=== PATIENT | female | born 1970 | race Caucasian/White ===

== ENCOUNTER 2016-11-04 09:56 | Observation (INO) | payer SELFPAY ==
[~2016-11-04] VITALS: Ht 160 cm; Wt 160.8 kg
[2016-11-04 10:47] LABS: EOSINOPHIL (%) 0.4 % (0-5); EOSINOPHIL COUNT 0.1 K/uL (0-0.3); HEMATOCRIT 37.1 % (36.0-46.0); IMMATURE GRANULOCYTE (%) 0.6 % (0.0-0.7); IMMATURE GRANULOCYTE COUNT 0.1 K/uL; INSTRUMENT ABS NEUTROPHIL CT 11.4 K/uL; LYMPHOCYTE COUNT 0.4 K/uL (1.0-2.8); MCH 26.7 PG (29.0-34.0); MCHC 31.3 G/DL (30.0-36.0); MCV 85.3 FL (83-99); MEAN PLAT.VOLUME 9.6 uM^3 (9.5-12.4); MONOCYTE (%) 1.7 % (3-12); MONOCYTE COUNT 0.2 K/uL (0-0.8); NEUTROPHIL (%) 93.7 % (45-76); NEUTROPHIL COUNT 11.4 K/uL (1.8-6.4); PLATELET COUNT 301 K/uL (156-360); RBC DIS.WIDTH-CV 14.6 % (11.8-14.6); RED BLOOD COUNT 4.35 M/uL (3.80-5.20); WHITE BLOOD COUNT 12.1 K/uL (4.1-10.2)
[2016-11-04 10:55] LABS: CHLORIDE 106 mEq/L (99-109); POTASSIUM 3.6 mEq/L (3.7-5.4); SODIUM 143 mEq/L (136-147)
[2016-11-04 10:57] LABS: GLUCOSE 219 mg/dL (70-99)
[2016-11-04 10:59] LABS: ANION GAP 13 MEQ/L (2-14); TOTAL BILIRUBIN 0.4 mg/dL (0.0-1.0)
[2016-11-04 11:05] LABS: LIPASE 97 U/L (1.0-51.0)
[2016-11-04 11:06] LABS: GFR ESTIMATE (CALCULATED) > 59 mL/min/; UREA NITROGEN (BUN) 15 mg/dL (9-23)
[2016-11-04 11:08] LABS: ALKALINE PHOSPHATASE 50 IU/L (3-129)
[2016-11-04 11:34] LABS: POINT-OF-CARE METER ID UU14100415
[2016-11-04 11:38] LABS: QUANTITATIVE HCG < 4.0 MIU/ML
[2016-11-04 11:53] LABS: ADD MIUA? NO; BILIRUBIN NEGATIVE; BLOOD NEGATIVE; COLOR YELLOW ((YELLOW)); GLUCOSE (STRIP) >=500; KETONES 5; LEUKOCYTES NEGATIVE; NITRITE NEGATIVE; PROTEIN (STRIP) NEGATIVE; SPECIFIC GRAVITY 1.017 (1.000-1.030); UCUL ADDED? NO; UROBILINOGEN 0.2 MG/DL (0.2-1.0)
[2016-11-04] MEDS ORDERED: PERCOCET 5/31 TABLET PO (15:09)
[2016-11-04] MEDS ORDERED: ZOFRAN4 MG PO (15:09)
[2016-11-04] MEDS ORDERED: MOTRIN600 MG PO (15:09)
[2016-11-04] MEDS ORDERED: VENTOLIN HFA18 GM IH (19:05)
[2016-11-04] MEDS ORDERED: GLIMEPIRIDE4 MG PO (19:06)
[2016-11-04] MEDS ORDERED: COREG25 M1 PO (19:06)
[2016-11-04] MEDS ORDERED: METFORMIN HCL1000 MG PO (19:06)
[2016-11-04] MEDS ORDERED: SERTRALINE HCL100 MG PO (19:06)
[2016-11-04] MEDS ORDERED: VICTOZA0.6 MG/0.1 SC (19:06)
[2016-11-04] MEDS ORDERED: OMEPRAZOLE20 MG PO (19:07)
[2016-11-04] MEDS ORDERED: FENOFIBRATE160 M1 PO (19:07)
[2016-11-04] MEDS ORDERED: HYDROCHLOROTHIA25 MG PO (19:07)
[2016-11-04] MEDS ORDERED: SHAROBEL0.35 MG PO (19:07)
[2016-11-04] MEDS ORDERED: GABAPENTIN300 MG PO (19:07)
[2016-11-04] MEDS ORDERED: FLAX SEED OIL1 EACH PO (19:07)
[2016-11-04 19:56] VITALS: BP 115/58
[2016-11-04 20:05] LABS: POINT-OF-CARE METER ID UU14162513
[2016-11-05 04:36] VITALS: BP 102/61
[2016-11-05 06:06] LABS: HEMATOCRIT 31.6 % (36.0-46.0); MCH 27.2 PG (29.0-34.0); MCHC 31.6 G/DL (30.0-36.0); MCV 86.1 FL (83-99); MEAN PLAT.VOLUME 10.1 uM^3 (9.5-12.4); PLATELET COUNT 235 K/uL (156-360); RBC DIS.WIDTH-CV 15.4 % (11.8-14.6); RBC DIS.WIDTH-SD 48.3 % (39-53); RED BLOOD COUNT 3.67 M/uL (3.80-5.20); WHITE BLOOD COUNT 9.5 K/uL (4.1-10.2)
[2016-11-05 06:36] LABS: ANION GAP 10 MEQ/L (2-14); CHLORIDE 103 MEQ/L (99-109); GFR ESTIMATE (CALCULATED) 43 mL/min/; GLUCOSE 153 mg/dL (70-99); POTASSIUM 3.7 MEQ/L (3.7-5.4); SAMPLE HEMOLYSIS CHECK 0; SAMPLE ICTERIC CHECK 0; SAMPLE LIPEMIA CHECK 0; SODIUM 138 MEQ/L (136-147); UREA NITROGEN (BUN) 21 mg/dL (9-23)
[2016-11-05 07:26] VITALS: BP 132/61
[2016-11-05 12:33] VITALS: BP 109/60
[2016-11-05 16:16] VITALS: BP 112/54
[2016-11-05 20:04] VITALS: BP 106/62
[2016-11-05 23:37] VITALS: BP 110/60
[2016-11-06 03:48] VITALS: BP 113/71
[2016-11-06 05:34] LABS: EOSINOPHIL (%) 0.6 % (0-5); EOSINOPHIL COUNT 0.1 K/uL (0-0.3); HEMATOCRIT 27.3 % (36.0-46.0); IMMATURE GRANULOCYTE (%) 0.8 % (0.0-0.7); IMMATURE GRANULOCYTE COUNT 0.1 K/uL; INSTRUMENT ABS NEUTROPHIL CT 7.2 K/uL; LYMPHOCYTE COUNT 0.6 K/uL (1.0-2.8); MCH 27.4 PG (29.0-34.0); MCHC 31.9 G/DL (30.0-36.0); MCV 86.1 FL (83-99); MONOCYTE (%) 5.6 % (3-12); MONOCYTE COUNT 0.5 K/uL (0-0.8); NEUTROPHIL (%) 86.1 % (45-76); NEUTROPHIL COUNT 7.2 K/uL (1.8-6.4); PLATELET COUNT 198 K/uL (156-360); RBC DIS.WIDTH-CV 15.1 % (11.8-14.6); RBC DIS.WIDTH-SD 47.4 % (39-53); RED BLOOD COUNT 3.17 M/uL (3.80-5.20); WHITE BLOOD COUNT 8.3 K/uL (4.1-10.2)
[2016-11-06 05:58] LABS: ANION GAP 12 MEQ/L (2-14); CHLORIDE 102 MEQ/L (99-109); GFR ESTIMATE (CALCULATED) 43 mL/min/; GLUCOSE 157 mg/dL (70-99); POTASSIUM 3.7 MEQ/L (3.7-5.4); SAMPLE HEMOLYSIS CHECK 1; SAMPLE ICTERIC CHECK 0; SAMPLE LIPEMIA CHECK 0; SODIUM 136 MEQ/L (136-147); UREA NITROGEN (BUN) 27 mg/dL (9-23)
[2016-11-06 09:46] VITALS: BP 118/74
[2016-11-06 11:44] VITALS: BP 100/57
[2016-11-06] MEDS ORDERED: TRAMADOL HCL50 MG PO (13:23)
[2016-11-06] MEDS ORDERED: TAMSULOSIN HCL0.4 MG PO (13:23)
[2016-11-06] MEDS ORDERED: ZOFRAN4 MG PO (13:23)
[2016-11-06] MEDS ORDERED: LEVOFLOXACIN500 MG PO (13:23)
== END 2016-11-06 15:14 | disposition home or self-care (01) ==
LOC: EDBD 09:56 → EME 09:56 → EDOF 18:44 → 5WEST 19:40
PROVIDERS: Emergency Medicine; Hospitalist; Internal Medicine
DX: N20.2 Calculus of kidney with calculus of ureter (principal); D72.829 Elevated white blood cell count, unspecified; Z87.442 Personal history of urinary calculi; E87.6 Hypokalemia; R10.32 Left lower quadrant pain; D25.9 Leiomyoma of uterus, unspecified; E66.01 Morbid (severe) obesity due to excess calories; Z68.44 Body mass index [BMI] 60.0-69.9, adult; G92 Toxic encephalopathy; T40.2X5A Adverse effect of other opioids, initial encounter; E11.65 Type 2 diabetes mellitus with hyperglycemia; N17.9 Acute kidney failure, unspecified; I10 Essential (primary) hypertension; E78.5 Hyperlipidemia, unspecified; K21.9 Gastro-esophageal reflux disease without esophagitis; Z88.2 Allergy status to sulfonamides
CPT/HCPCS: 74176; 80048; 80053; 81003; 82948; 83690; 84702; 85025; 85027; 87040; 99281; 99285; G0378; J1170; J1200; J1644; J1885; J1956; J2405; J7030; J7050; S0028